=== PATIENT | female | born 1965 | race Caucasian/White ===

== ENCOUNTER 2021-09-14 10:40 | Emergency (ER) | payer OTHER ==
[~2021-09-14] VITALS: Ht 162.6 cm; Wt 68.0 kg
[~2021-09-14 10:40] MED LIST: ASPIRIN E.C. 3325 MG PO; LIPITOR10 MG PO
[2021-09-14] MEDS ORDERED: OTEZLA30 MG PO (11:14)
[2021-09-14] MEDS ORDERED: LISINOPRIL20 MG PO (11:14)
[2021-09-14] MEDS ORDERED: DICLOFENAC SODI75 MG PO (12:45)
[2021-09-14] MEDS ORDERED: ARTHRITIS PAIN150 GM TOP (13:09)
== END 2021-09-14 13:10 | disposition home or self-care (01) ==
LOC: FER 10:40
DX: S80.02XA Contusion of left knee, initial encounter (principal); S90.122A Contusion of left lesser toe(s) without damage to nail, initial encounter; F17.210 Nicotine dependence, cigarettes, uncomplicated; I10 Essential (primary) hypertension; Z79.899 Other long term (current) drug therapy; W01.0XXA Fall on same level from slipping, tripping and stumbling without subsequent striking against object, initial encounter; Z28.310 Unvaccinated for COVID-19
CPT/HCPCS: 73564